=== PATIENT | male | born 1990 | race African-American/Black ===

== ENCOUNTER 2017-11-03 20:23 | Emergency (ER) | payer SELFPAY ==
[~2017-11-03] VITALS: Ht 170.2 cm; Wt 63.5 kg
[2017-11-03 20:45] VITALS: BP 149/93
[2017-11-03] MEDS ORDERED: AZITHROMYC200 MG/5 M ORAL (20:52)
[2017-11-03] MEDS ORDERED: ACETAMINOPHEN-1 EAC1 ORAL (20:52)
[2017-11-03] MEDS ORDERED: Ketorolac 60mg Inj IM ONE (21:00)
[2017-11-03 21:30] VITALS: BP 149/93
--- NOTE | 2017-11-03 21:43 | Emergency Room Report ---
History of Present Illness General Chief Complaint: Toothache Source: Patient Present Illness HPI patient is a 27 year old male with 3 days of increased left sided facial swelling and dental swelling. He reported having increased pain to the left side of his jaw. He denied any recent trauma. He had not been having any fever. Patient stated that he had sharp pain to her left-sided face which is unrelieved by ibuprofen.The patient was noted to have sick contacts at home with respiratory infection. Allergies: Uncoded Allergies: PENICILLIN (Allergy, Unknown, 11/03/17) Patient History Past Medical History: see triage record Reviewed Nursing Documentation: PMH: Agreed, PSxH: Agreed Nursing Documentation-PMH Past Medical History: No Stated History Review of Systems All Other Systems: negative except mentioned in HPI Physical Exam Vital Signs Date Time Temp Pulse Resp B/P (MAP) Pulse Ox O2 Delivery O2 Flow Rate FiO2 11/03/17 20:34 98.1 72 14 149/93 96 Room Air General Appearance: well appearing, no apparent distress, alert, GCS 15, non- toxic Head: normocephalic, atraumatic ENT: hearing grossly normal, normal voice, other - left parotid swelling Neck: full range of motion, supple Respiratory: no respiratory distress, speaking full sentences Musculoskeletal: no calf tenderness Neurologic: normal gait Psychiatric: mood/affect normal Skin: no rash Medical Decision Making Diagnostic Impression: Primary Impression: Dental infection Additional Impression: Parotitis ER Course The patient presented for left-sided facial swelling. Differential diagnosis included but was not limited to trigeminal neuralgia, dental abscess, dry socket , osteomyelitis, nerve injury. The patient was noted to have a benign exam. The patient appears to have some evidence of parotiditis. The patient was given prescription for azithromycin. The patient is advised to follow up with primary care doctor in 1-2 days. Patient is advised to return if any worsening condition or if any changes in status that are concerning. Last Vital Signs Date Time Temp Pulse Resp B/P (MAP) Pulse Ox O2 Delivery O2 Flow Rate FiO2 11/03/17 20:34 98.1 72 14 149/93 96 Room Air Status: improved Disposition: HOME, SELF-CARE Condition: Stable Scripts Acetaminophen With Codeine (T#3) (TYLENOL #3 TAB*) Y Tab 1 TAB ORAL Q8H Y for For Pain, #10 TAB Prov: Dave Ron 2/1/18 Azithromycin* (AZITHROMYCIN*) 200 Mg/5 Ml Susp.recon 250 MG ORAL DAILY, #40 ML Prov: Dave Ron 11/03/17 Patient Instructions: Dental Pain Dave Ron Nov 03, 2017 21:43
== END 2017-11-03 21:30 | disposition home or self-care (01) ==
LOC: EMR 20:50
DX: K04.7 Periapical abscess without sinus (principal); K11.20 Sialoadenitis, unspecified; Z88.0 Allergy status to penicillin
CPT/HCPCS: 96372; 99283